=== PATIENT | female | born 1995 | race Caucasian/White ===

== ENCOUNTER 2022-08-31 15:34 | Emergency (ER) | payer OTHER, SELFPAY ==
--- NOTE | ~2022-08-31 | XR_ITS ---
EXAM: XR abdomen/kub 1V DATE: 08/31/2022 16:06 HISTORY: NAUSEA X 1 WEEK. . COMPARISON: None available. FINDINGS: Clear lung bases. Normal bowel gas pattern. No organomegaly. No abnormal abdominal calcifi cation. Regional bones and soft tissues normal for age. IMPRESSION: No radiographic evidence of obstruction or ileus. Reviewed, dictated and finalized at location K. [facility] [employer]NAGER
[2022-08-31 15:38] VITALS: BP 135/98; PULSE 82; RESP 14; TEMP 36.8; O2SAT 100
--- NOTE | 2022-08-31 15:49 | ED.NAVMDI ---
HPI - Nausea/Vomiting/Diarrhea General Chief complaint: Nausea/Vomiting/Diarrhea Stated complaint: nausea Time Seen by Provider: 08/31/22 15:37 History of Present Illness HPI Narrative: patient presents with nausea and vomiting for the past week. Patient started on wegovy for weight loss 5 weeks ago and did fine on the first month then missed a week of medication and on week 6 started with a higher dose and since then has had nausea and vomiting . Patient states no bowel movement for one week. Related Data Home Medications Medication Instructions Recorded Confirmed escitalopram oxalate 10 mg tablet mg 08/31/22 semaglutide (weight loss) 0.5 mg subcut 08/31/22 mg/0.5 mL subcutaneous pen injector (Wegovy) Allergies Allergy/AdvReac Type Severity Reaction Status Date / Time No Known Allergies Allergy Verified 08/31/22 15:41 Review of Systems Review of Systems: CONSTITUTIONAL: Denies fever, chills, or sweats. EYES: Denies visual changes, redness, or discharge. ENT: Denies rhinorrhea, congestion, sore throat, or otalgia. CARDIOVASCULAR: Denies chest pain, palpitations, or edema. RESPIRATORY: Denies cough or dyspnea. GASTROINTESTINAL: Denies abdominal pain, nausea, vomiting, or diarrhea. GENITOURINARY: Denies dysuria or hematuria. SKIN: Denies rash or itching. MUSCULOSKELETAL: Denies back pain, joint pain, or myalgia. NEUROLOGIC: Denies headache, numbness, or weakness. PSYCHIATRIC: Denies anxiety or depression. PMFSH Comments At time of signature, agree with nursing past medical, surgical, social and family history. There is no relevant family history pertinent to the presenting complaint Exam Narrative: GENERAL: Well-appearing, well-nourished, and in no acute distress. HEAD: Normocephalic, atraumatic. EYES: PERRLA and EOMI. ENT: Nares clear, no rhinorrhea or epistaxis. Mucous membranes moist. NECK: Supple. CHEST: Clear to auscultation. No respiratory distress. HEART: Regular rate and rhythm. No murmur heard. Normal peripheral pulses. ABDOMEN: Soft, nontender, nondistended, normal active bowel sounds. EXTREMITIES: Normal range of motion. No edema. SKIN: Warm, dry, no rash. NEURO: No focal deficits. Alert and oriented x3. [place] Coma Scale Eye Opening: Spontaneous 4 [place] Coma Scale Motor: Obeys Commands 6 [place] Coma Scale Verbal: Oriented 5 [place] Coma Scale Total 15 Course Course Level of Care: Express Care Visit Vital Signs Vital signs: Vital Signs Temperature 36.8 C 08/31/22 15:38 Pulse Rate 82 08/31/22 15:38 Respiratory Rate 14 08/31/22 15:38 Blood Pressure 135/98 H 08/31/22 15:38 Pulse Oximetry 100 08/31/22 15:38 Oxygen Delivery Room Air 08/31/22 15:38 Temperature 36.8 C 08/31/22 15:38 Pulse Rate 82 08/31/22 15:38 Respiratory Rate 14 08/31/22 15:38 Blood Pressure 135/98 H 08/31/22 15:38 Pulse Oximetry 100 08/31/22 15:38 Oxygen Delivery Room Air 08/31/22 15:38 MDM - Nausea/Vomiting/Diarrhea Differential Diagnosis Differential diagnosis: Likely traveler's diarrhea, food poisoning, gastroenteritis, clostridium difficile infection, drug-induced nausea and vomiting and dehydration Imaging Data My impression: VFINDINGS:? Clear lung bases. Normal bowel gas pattern. No organomegaly. No abnormal abdominal calcification. Regional bones and soft tissues normal for age. IMPRESSION: No radiographic evidence of obstruction or ileus. Radiologist's impression: FINDINGS:? Clear lung bases. Normal bowel gas pattern. No organomegaly. No abnormal abdominal calcification. Regional bones and soft tissues normal for age. IMPRESSION: No radiographic evidence of obstruction or ileus. Discharge Plan Discharge Clinical Impression: Drug-induced nausea and vomiting Patient Disposition: Home, Self-Care Condition: Stable Instructions: Acute Nausea and Vomiting (DC) Additional Instructions: DISCONTINUE WEGOVY UNTIL APPOINTMENT WITH PCP TO DIS
== END 2022-08-31 16:32 | disposition home or self-care (01) ==
PROVIDERS: Emergency Provider Nurse Practitioner Family
DX: R11.2 Nausea with vomiting, unspecified (principal); T50.995A Adverse effect of other drugs, medicaments and biological substances, initial encounter
CPT/HCPCS: 74018; 99213; G0463